=== PATIENT | male | born 1930 | race African-American/Black ===

== ENCOUNTER 2016-09-03 12:41 | Inpatient (IN) | payer MEDICARE ==
--- NOTE | ~2016-09-03 | HP ---
History And Physical [facility] [address] [facility] [place]. [address] NAME: ANGELY COONEY : 30 STATUS : ADM IN PAT#: [id number] AGE: 86 ADM/REG DATE : 09/03/16 MR#: [id number] REPORT SERV DATE: 09/03/16 DICTATED BY: DEBBI HOSKINS DATE: 09/03/16 REPORT STATUS : Draft TRANSCRIBED BY: MODL DATE: 09/03/16 DATE OF ADMISSION: 09/03/2016 CHIEF COMPLAINT: Progressive weakness, not eating and drinking, hurting all over, and intermittent confusion for about two weeks. HISTORY OF PRESENT ILLNESS: He is a very pleasant 86-year-old gentleman. He has a past medical history significant for hypertension. He has a history of recent diagnosed right leg DVT by Dr. Parker, his primary care provider, prior history of DVT for which he has an IVC filter, and according to the daughter who is giving much of the history, no other prior medical history, presenting today to [facility] with complaints of progressive weakness, hurting all over, as well as not eating and drinking for about two weeks that got progressively worse over the last couple of days and that prompted the patient's daughter to bring the patient to hospital. The patient is not complaining of any nausea or vomiting. No chest pain, but he does complain of some shortness of breath. No abdominal pain. No hematemesis or melena. No hematochezia. Dr. Parker, his primary care provider, performed a CT scan of the chest, abdomen, and pelvis on 06/19/2016 because of the recurrent DVTs. It shows some possible pneumonitis and interstitial lung disease. CT of the abdomen and pelvis with essentially normal just diverticulosis, but no diverticulitis. He has been started on Eliquis, but for these two weeks his medical condition got progressively worse to the point that he has been brought to hospital here. Has been found severely dehydrated and hypernatremic, and as a result, Hospitalist Service has been asked for admission, further evaluation, and treatment. PAST MEDICAL HISTORY: Significant for hypertension and recurrent DVT. PAST SURGICAL HISTORY: History of IVC filter. PAST SOCIAL HISTORY: He is a smoker with cigars entire life. He is a heavy alcoholic. According to the daughter, he drinks high amount of [place] since he was 8 years old, but no IV drugs. ALLERGIES: HE DOES NOT HAVE ANY DRUG ALLERGIES. FAMILY HISTORY: Significant for hypertension. MEDICATIONS: At home include Eliquis, hydrochlorothiazide, lisinopril, and verapamil. REVIEW OF SYSTEMS: A 14-point review of systems has been obtained and pertinent positive has been listed into the history of present illness. Otherwise, negative except those underlying above. OBJECTIVE: VITAL SIGNS: The patient currently is afebrile. Blood pressure 90/51, heart rate 98, respiratory rate 21, and saturating about 98% on room air. GENERAL: He is a very dry appearing cachectic gentleman, very hard of talking and hearing. He does not appear in any acute distress. He is alert and oriented x2. He does follow History And Physical [address] [address] NAME: ANGELY COONEY : 30 STATUS : ADM IN [facility]#: [id number] AGE: 86 ADM/REG DATE : 09/03/16 MR#: [id number] REPORT SERV DATE: 09/03/16 DICTATED BY: DEBBI HOSKINS DATE: 09/03/16 REPORT STATUS : Draft TRANSCRIBED BY: JCARLOS DATE: 09/03/16 commands appropriately, but extremely weak. HEENT: Show pupils are equal, round, and reactive to light. Extraocular movements intact. Very poor dentition and very dry mucous membranes. NECK: No JVD. No lymphadenopathy. No thyromegaly appreciated. CHEST: Eval shows bilateral air entry. Few bibasilar crackles. No wheezes or rhonchi appreciated. CARDIOVASCULAR: Regular rate and rhythm. S1, S2 positive. No S3, no S4. No murmurs, rubs, or gallops appreciated. ABDOMEN: Soft, nontender. No guarding. No rebound. EXTREMITIES: No clubbing, cyanosis, or edema. NEUROLOGIC: He is alert and oriented x2. He is very hard of hearing. He is confused at times, but he does follow commands. LABORATORY DATA: Labs from today include AB.33, 24, and 61 on 21% FiO2. Sodium is 153, potassium 5.9, chloride 122, CO2 of 16, BUN 194, creatinine 4.79. On 06/05/2016, creatinine was 1.6, glucose is 115. His liver function tests are normal. Total bilirubin 0.2, alkaline phosphatase 66, ALT 8, AST 17. Lipase 437 and TSH of 0.29. White count is 8.2, hemoglobin 10.2, hematocrit 31.8, and platelets are 259. His UA performed here in the emergency room, has been essentially negative, and there is a chest x-ray, portable, performed in the emergency room. It does show some interstitial infiltrate, chronic changes but possible some aspiration, can be considered with some interstitial lung disease, possible interstitial pneumonitis. EKG performed in the emergency room has shown sinus rhythm with left bundle-branch block. ASSESSMENT AND PLAN: 1. This is a very pleasant 86-year-old gentleman with acute kidney injury likely secondary to significant dehydration with decreased p.o. intake. 2. Hypernatremia secondary to above. 3. Hyperkalemia. 4. Failure to thrive. 5. History of hypertension. 6. Recurrent deep venous thrombosis with recent right lower extremity deep venous thrombosis. 7. Possible aspiration pneumonitis. 8. Likely chronic obstructive pulmonary disease. 9. EtOH abuse. PLAN: 1. The patient is going to be admitted to [facility]. We are going to place him on D5 water with bicarb. We are going to place a Bautista catheter, check all his studies including spot urine for sodium, creatinine, and osmolality. We are going to hold the hydrochlorothiazide, lisinopril, and verapamil currently, get a CAT scan of the chest, abdomen, and pelvis, and consult Nephrology for further recommendation. 2. Hypernatremia. We are going to hydrate him and recheck his labs today and in the morning. 3. Hyperkalemia likely secondary to acute on chronic kidney disease. Provide Kayexalate History And Physical [address] [address] NAME: ANGELY COONEY : 30 STATUS : ADM IN PAT#: [id number] AGE: 86 ADM/REG DATE : 09/03/16 MR#: [id number] REPORT SERV DATE: 09/03/16 DICTATED BY: DEBBI HOSKINS DATE: 09/03/16 REPORT STATUS : Draft TRANSCRIBED BY: MODL DATE: 09/03/16 as well as calcium gluconate. 4. Failure to thrive, unclear etiology. We will start with a chest CT as well as a CT of the abdomen and pelvis. We are going to check anemia studies. Check a ferritin level as well as vitamin B12, folate, TSH, and a free T4. 5. Recent DVT. We will continue his Eliquis. 6. ETOH abuse. Thiamine, multivitamins, as well as Ativan p.r.n. We will also check a.m. labs. Possible aspiration pneumonitis with interstitial lung disease. We are going to place him on empiric antibiotics and get a CAT scan of the chest for better delineation of the lung structures. Check on procalcitonin level. Check blood cultures, and sputum Gram stain and cultures if the patient experienced any cough. We are going to provide reasonable pain and nausea control as well as GI and DVT prophylaxis. I have discussed extensively with the patient's daughter, Ms. Donna Tellez, who is the power of united states attorney, the patient's medical condition and as well as our therapeutical goals. We have also discussed the patient's wishes in case his condition deteriorates, and she does not want any aggressive measures such as intubation, chest compression, mechanical ventilation. No defibrillation, cardioversion, or medications to treat life- threatening arrhythmia or hemodynamic deterioration according to the patient's prior wishes all stated. We will honor the patient's wishes and make him do not resuscitate. Further workup and recommendation pending above. It is worthwhile to note that the patient is going to be followed by Hospitalist Service. CF/MODL Debbi Hoskins M.D. / [id number] CC: Josafat Cage M.D.
--- NOTE | ~2016-09-03 | CN ---
Consultation Report [facility] [address] [place]. [address] NAME: ANGELY COONEY : 30 STATUS : ADM IN PAT#: [id number] AGE: 86 ADM/REG DATE : 09/03/16 MR#: [id number] REPORT SERV DATE: 09/04/16 DICTATED BY: BILL NEELY DATE: 09/04/16 REPORT STATUS : Draft TRANSCRIBED BY: MODL DATE: 09/04/16 NEPHROLOGY CONSULTATION DATE OF CONSULTATION: 09/04/2016 REASON FOR CONSULTATION: Acute renal failure. HISTORY OF PRESENT ILLNESS: This is a very unfortunate 86-year-old gentleman, who came to the emergency department with weakness and failure to thrive, and poor p.o. intake of food and drink for least two weeks. He apparently had been noted by family to have intermittent confusion. The gentleman is seen in the IMCU at this time and he denies any focal complaints at this time. He is not known to have chronic kidney disease with certainty, but review of old lab work in the [facility] system demonstrated modestly elevated baseline serum creatinine of 1.6 mg/dL as measured in 06/2016 on a single sample. He indicates poor appetite, but denies abdominal pain, nausea, vomiting, or diarrhea. He had complained to his family of pain all over his body. His PCP Dr. Parker, apparently checked CT scan of the chest, abdomen, and pelvis back in 2016, because he has had history of recurrent DVT. At that time, he is noted to have pneumonitis, interstitial lung disease. He has had a new CT during this admission, which demonstrates new lytic lesion in left acetabulum. He also has new left basilar pulmonary nodules. Serum creatinine is elevated up to 4.3 mg/dL. At the time of admission, he had modest potassium elevation up to 5.6 mEq/L. He was also modestly acidotic with total CO2 of 16 millimole per liter. He was appropriately given bicarbonate based maintenance IV fluid overnight and has laboratory improvements as described below. We are consulted to assist regarding acute renal failure. PAST MEDICAL HISTORY: 1. Hypertension. 2. Recurrent DVT. 3. Possible chronic lung disease. ALLERGIES: NO KNOWN DRUG ALLERGIES. HOME MEDICATIONS: 1. Eliquis 5 mg oral twice daily. 2. Hydrochlorothiazide 25 mg oral every morning. 3. Lisinopril 20 mg oral daily. 4. Verapamil ER 240 mg once every morning. SURGICAL HISTORY: He has had IVC filter placed previously. SOCIAL HISTORY: He has smoked cigars most of his life. There is substantial history of heavy alcohol abuse according to family members. He has been drinking whiskey since he was Consultation Report [place] [address] [place]. [address] NAME: ANGELY COONEY : 30 STATUS : ADM IN PAT#: [id number] AGE: 86 ADM/REG DATE : 09/03/16 MR#: [id number] REPORT SERV DATE: 09/04/16 DICTATED BY: BILL NEELY DATE: 09/04/16 REPORT STATUS : Draft TRANSCRIBED BY: JCARLOS DATE: 09/04/16 [age] years old. No history of IV drug abuse. FAMILY HISTORY: Apparently, significant for hypertension. There is no mention of chronic kidney diseases. REVIEW OF SYSTEMS: GENERAL: Denies recent night sweats or chills or fevers. GI: Loss of appetite as documented. He denies abdominal pain or diarrhea. CARDIOVASCULAR: Denies chest pain. RESPIRATORY: Indicates no coughing. All other review of systems was negative, noncontributory, or as outlined in the history of present illness. PHYSICAL EXAMINATION: VITAL SIGNS: Temperature 97.4, heart rate 118 beats per minute, respiratory rate 30 breaths per minute, blood pressure 105/54. GENERAL: He is severely cachectic and elderly, but in no distress at this time. HEENT: Positive bitemporal wasting. Sinuses nontender. No evidence of trauma. External ears and nose benign. Oropharynx, mucous membranes pale and dry. Several missing teeth. Eye exam was conjunctivae with encrusted mucopurulent secretion, sunken globes noted. Pupils equal, round, and reactive to light. NECK: Supple. Poor musculature, but easily movable without meningismus, no palpable masses or nodules. Trachea midline. No palpable thyroid nodule. LYMPHATIC: Anterior-posterior neck supraclavicular and abdominal regions were free of lymphadenopathy. RESPIRATORY: Effort is presently nonlabored. Breath sounds distant with faint crackles bilaterally. CARDIOVASCULAR: Dynamic precordium auscultation reveals S1 and S2 with regular rhythm. No gallop or rub. No peripheral edema. No jugular venous distention. ABDOMEN: Sunken. Liver and spleen both palpable, but nontender, and no palpable masses. No guarding to palpation. Auscultation reveals positive bowel sounds. EXTREMITIES: Significant muscular wasting. SKIN: No rashes or discoloration. Skin turgor is poor. Hands and feet were dry, but not cyanotic. STUDIES: Chest x-rays reveals columnar thorax with what appeared to be chronic fibrotic changes bilaterally. Lungs are hyperinflated. Uncertain whether he has effusions. CT of the thorax, abdomen, and pelvis significant for many things, but chief among them lytic lesion noted in the left acetabulum. Very large prostate is noted. He has an IVC filter. There are posterior basilar left lower lobe lung nodules, some of which had cavitary features. Urinalysis, specific gravity of 1.017, pH 5, negative protein, negative glucose, negative hemoglobin, negative leukocyte esterase. Microscopy was bland except for 103 hyaline casts. Chemistry sodium 154, potassium 4.2, chloride 120, CO2 of 21, BUN of Consultation Report [address] [address] NAME: ANGELY COONEY FRANC : 30 STATUS : ADM IN [facility]#: [id number] AGE: 86 ADM/REG DATE : 09/03/16 MR#: [id number] REPORT SERV DATE: 09/04/16 DICTATED BY: BILL NEELY DATE: 09/04/16 REPORT STATUS : Draft TRANSCRIBED BY: JCARLOS DATE: 09/04/16 170, creatinine 4.3, glucose 140, albumin 2, corrected calcium 9.8. Procalcitonin level was within normal limits. Phosphorus yesterday measured 6.4. CBC today, white cell count 7, hemoglobin 9 g/dL, hematocrit 27.2%, platelets 221. IMPRESSIONS: 1. Acute kidney injury which I am suspecting currently is hemodynamic in nature relative to substantial dehydration. The urine reveals concentration with substantial amount of hyaline casts. He could possibly have had some obstructive insult given the size of his prostate, but I am unaware of any substantial gross postvoid residual. 2. 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 3. Hyperkalemia is basically resolved. 4. Metabolic acidosis, much improved after administration of bicarbonate based fluids as well as bicarbonate boluses. 5. Hypernatremia, which indicates relative dehydration. 6. He appears quite dry on physical exam. 7. Cachectic, unknown duration of weight loss. The patient indicates that he once weighed 140 pounds. He is certainly far less than that at this time. 8. Lytic lesion on CT scan. 9. Cavitary pulmonary lesions. 10.Anemia, moderate severity, etiology unclear at this time. 11.Severe hypoalbuminemia despite what I would expect to be relatively concentrated serum indices. Nutritional status is absolutely terrible. 12.Other past medical history and chronic problems as outlined above. Malignancy is strongly suspected in this gentleman. He is elderly and quite frail and in my opinion is not really a candidate for hemodialysis. Conservative measures are warranted. PLAN/RECOMMENDATIONS: 1. I am going to change his IV fluids to D5 lactated Ringer's and run that at 120 mL/h. 2. Bautista with strict intake and output measurements. 3. Agree with laboratory studies, already ordered including serum immunofixation and prostatic antigen. 4. Daily chemistries. 5. Thiamine 100 mg IV q. 24 hours. 6. If not yet ordered, I will add serum B12, folic acid level, and also iron stores for workup of anemia. Thank you for consulting us in the care of this complicated patient. He will be followed on rounds. RONAN/JCARLOS Consultation Report [address] [place]. [address] NAME: COONEYANGELY HICKMAN FRANC : 30 STATUS : ADM IN [facility]#: [id number] AGE: 86 ADM/REG DATE : 09/03/16 MR#: [id number] REPORT SERV DATE: 09/04/16 DICTATED BY: BILL NEELY DATE: 09/04/16 REPORT STATUS : Draft TRANSCRIBED BY: JCARLOS DATE: 09/04/16 Bill Neely M.D. / [id number] CC: Josafat Cage M.D.
--- NOTE | ~2016-09-03 | HP ---
History And Physical [facility] [address] [place] [place]. [address] NAME: ANGELY COONEY : 30 STATUS : DIS IN PAT#: [id number] AGE: 86 ADM/REG DATE : 09/03/16 MR#: [id number] REPORT SERV DATE: 09/08/16 DICTATED BY: MICHAEL VELAZCO DATE: 09/08/16 REPORT STATUS : Draft TRANSCRIBED BY: MODL DATE: 09/08/16 DATE OF ADMISSION: 09/03/2016 Date of original admission was 09/03/2016. Date of transfer to [facility] was 09/08/2016. The patient is an 86-year-old -[place] male, brought to [facility] on 09/03/2016, for increasing weakness, shortness of breath, and decreased p.o. intake for the last several weeks. He was found to be cachectic with an albumin of 1.8. He had aspiration pneumonia, dehydration, hypernatremia, acute kidney injury with a creatinine that went up to over 4 and a GFR that went down to 13 before rebounding to 29. He was also found to have widely metastatic bony lytic lesions and multiple pulmonary nodules and a thyroid mass. Family declined any additional workup. PAST MEDICAL HISTORY: Pertinent for interstitial lung disease and COPD. Alcohol abuse. Recurrent DVTs. Hypertension. Prostatic hypertrophy. His only surgery that is noted is an IVC filter (it is worth noting family is not present and this history was obtained from the chart.) SOCIAL HISTORY: He has been a long-time cigar smoker and abuser of alcohol. No IV drug use. FAMILY HISTORY: Pertinent for hypertension. ALLERGIES: HE HAS NO ALLERGIES. REVIEW OF SYSTEMS: Cannot really be done because the patient is just mumbling and picking at his clothes. PHYSICAL EXAMINATION: GENERAL: This is a cachectic confused -Haitian male. VITAL SIGNS: His blood pressure 106/62, respirations were 40, pulse 120. NEUROLOGIC: He has been given a little bit of morphine, having come into our service and is a little calmer and breathing a little better now. He had muscle wasting. Pupils are equal. Extraocular motions appeared intact. NECK: No carotid bruits heard. I could not feel the aforementioned thyroid mass. LUNGS: He has essentially no breath sounds on the left. The lungs on the right are fairly clear. HEART: His heart is rapid, occasionally irregular. No murmurs or gallops heard. ABDOMEN: Scaphoid. Soft with positive bowel sounds. EXTREMITIES: He had no edema in his legs. He did not really respond to commands but was moving both arms. ASSESSMENT AND PLAN: This is an 86-year-old -[place]ian male with end-stage COPD and respiratory failure, just weaned off Vapotherm 20 L at 40%. The goal now is to comfort care History And Physical [address] [address] NAME: ANGELY COONEY : 30 STATUS : DIS IN PAT#: [id number] AGE: 86 ADM/REG DATE : 09/03/16 MR#: [id number] REPORT SERV DATE: 09/08/16 DICTATED BY: MICHAEL VELAZCO DATE: 09/08/16 REPORT STATUS : Draft TRANSCRIBED BY: MODL DATE: 09/08/16 and he is DNR. He also has presumed metastatic cancer of unknown primary and we are admitting him GIP for his dyspnea and confusion. GP/MODL Michael Velazco MD / [id number] CC: MD Peterson Avila M.D.
--- NOTE | ~2016-09-03 | DS ---
Discharge Summary [facility] [address] [place]. [address] NAME: ANGELY COONEY : 30 STATUS : DIS IN PAT#: [id number] AGE: 86 ADM/REG DATE : 09/03/16 MR#: [id number] REPORT SERV DATE: 09/10/16 DICTATED BY: ISAIAH RODRIGUES DATE: 09/09/16 REPORT STATUS : Draft TRANSCRIBED BY: MODL DATE: 09/09/16 ADMISSION DATE: 09/03/2016 DISCHARGE DATE: 09/09/2016 DISCHARGE DIAGNOSES: 1. End-stage chronic obstructive pulmonary disease, with hypoxic respiratory failure. 2. DNR comfort care. 3. Presumed metastatic cancer of unknown primary. 4. Acute kidney injury. 5. Metastatic bony lytic lesions and multiple pulmonary nodules. HOSPITAL COURSE: This is an 86-year-old gentleman who was admitted to the hospital with initial diagnosis of acute kidney injury from dehydration as well as hyperkalemia and failure to thrive. For details please refer to the excellent H and P by Dr. Debbi Olmedo. In summary, the patient was admitted and was given maximal medical care in the [facility]. Despite maximal efforts, patient continued to deteriorate and although we corrected his dehydration, patient continued to show overall clinical deterioration. The patient's end-stage COPD only got worse throughout the hospital stay, and he required to be on BiPAP which was later titrated down to Vapotherm, but he was not able to come off the Vapotherm. In the light of metastatic cancer with unknown primary and his advanced age, as well as multiple medical problems, it was decided that the patient will benefit most from hospice care which patient agreed to. The patient was transferred out to the [facility] and hospice consultation was requested. The patient was accepted to inpatient hospice on site and his care was transferred to hospice. Total of 40-minutes spent in coordinating this patient's discharge today. DICTATED BY: MD JUAN Avila/JCARLOS Isaiah Rodrigues MD / [id number] CC: MD Peterson Avila M.D.
[~2016-09-03 12:41] MED LIST: ADVAIR250 INH; AMB5 PO; ARICEPT10 PO; ARTHRITIS PAIN RELIE PO; ASAB PO; CENTRUM TAB1 TAB PO; CLARIT10 PO; COREG25 PO; CYMBALTA60 PO; DIOVAN320 MG PO; HYDRALAZINE100 MG PO; MERCAPTOPUR50 MG OR; NASONEX NAS; NORV10 PO; PRILO PO; STERAPRED DS10 MG PO; TESTOST CYP100 MG/ML IM; VENTOLIN HFA INH; VITAMIN D31000 UNIT PO; ZOCOR10 PO
[2016-09-03 12:48] LABS: BASOPHILS 0.1 %; BASOPHILS ABSOLUTE 0.01 10/3/uL (0.0-0.16); EOSINOPHILS 0.1 %; EOSINOPHILS ABSOLUTE 0.01 10/3/uL (0.0-0.53); ER CBC TAT 0 Hrs 05 Mins; HEMATOCRIT 31.8 % (40.0-51.0); HEMOGLOBIN 10.2 g/dL (13.6-17.8); IMMATURE GRANULOCYTES 0.2 %; LYMPHOCYTES 8.3 %; LYMPHOCYTES ABSOLUTE 0.68 10/3/uL (0.67-4.30); MEAN CORPUS HGB CONC 32.1 g/dL (32.0-36.0); MEAN CORPUSCULAR HEMOGLOB 28.9 pg (26.0-34.0); MEAN PLATELET VOLUME 10.5 fL (9.2-13.0); MONOCYTES 4.9 %; NEUTROPHILS 86.4 %; NEUTROPHILS ABSOLUTE 7.11 10/3/uL (2.02-8.40); RBC DISTRIBUTION WIDTH 15.3 % (12.0-16.0); RED CELL COUNT 3.53 10/6/uL (4.7-6.1); WHITE BLOOD CELLS 8.2 10/3/uL (4.5-10.5)
[2016-09-03 12:51] LABS: MANUAL DIFF NO %; MEAN CORPUSCULAR VOLUME 90.1 fL (80-100); PLATELET COUNT 259 10/3/uL (150-400)
[2016-09-03 12:52] LABS: IMMATURE GRANULOCYTES ABSOLUTE 0.02 10/3/uL (0.0-0.11)
[2016-09-03 12:53] LABS: ASCORBIC ACID (UR NOT ORDER) NEG (NEG); BILIRUBIN, URINE NEGATIVE (NEG); ER URINALYSIS TAT 0 Hrs 08 Mins; KETONE, URINE NEGATIVE (NEG); LEUKOCYTE ESTERASE(NOT OR NEG (NEG); NITRITE (URINE) NEG (NEG); WBC (NOT ORDERED) (RFLEX) 1 (0-5)
[2016-09-03 13:03] LABS: ALKALINE PHOSPHATASE 66 U/L (45-117); CALCIUM, SERUM 8.3 MG/DL (8.5-10.4); CHLORIDE, SERUM 122 MMOL/L (96-112); GLUCOSE, SERUM 115 MG/DL (60-99); SGOT(AST) 17 U/L (5-40); SGPT(ALT) 8 U/L (5-65); TOTAL BILIRUBIN 0.2 MG/DL (0-1.2)
[2016-09-03 13:05] LABS: A/G RATIO 0.5 (0.7-1.9); ALBUMIN 1.9 G/DL (3.5-5.0); CO2 (CARBON DIOXIDE) 16 MMOL/L (24-34); CREATININE 4.79 MG/DL (0.70-1.30); GFR AFRICAN AMERICAN 12 ML/MIN (>=60); GFR NON AFRICAN AMERICAN 10 ML/MIN (>=60); GLOBULIN 3.6 G/DL (2.5-4.1); POTASSIUM, SERUM 5.9 MMOL/L (3.5-5.3); SODIUM, SERUM 153 MMOL/L (135-148); TOTAL PROTEIN 5.5 G/DL (6.0-8.5)
[2016-09-03 13:08] LABS: BAND NEUTROPHILS 5 %; BURR CELLS 1+ (3-10/OIF) (0-2/OIF); ER DIFF TAT 0 Hrs 25 Mins; LYMPHOCYTES 6 %; LYMPHOCYTES ABSOLUTE (CALC) 0.49 10/3/uL (0.67-4.30); MONOCYTES 1 %; MONOCYTES ABSOLUTE (CALC) 0.08 10/3/uL (0.21-1.20); NEUTROPHILS ABSOLUTE (CALC) 7.63 10/3/uL (2.02-8.40); PLATELET ESTIMATE ADQ (ADEQUATE); POIKILOCYTOSIS 1+ (5-10/OIF) (0-5/OIF); SEGMENTED NEUTROPHIL (0) 88 %; TOTAL NUCLEATED CELLS 100
[2016-09-03 13:09] LABS: OVALOCYTES 1+ (3-10/OIF) (0-2/OIF); SCHISTOCYTES OCC (0-2/OIF)
[2016-09-03 13:10] LABS: POLYCHROMASIA 1+ (2-5/OIF) (0-1/OIF)
[2016-09-03 13:14] LABS: BUN (BLOOD UREA NITROGEN) 194 MG/DL (6-23)
[2016-09-03] MEDS ORDERED: HCTZ25B PO (13:54)
[2016-09-03] MEDS ORDERED: ELIQUIS 5 MG TAB5 MG PO (13:54)
[2016-09-03] MEDS ORDERED: PRIN20 PO (13:55)
[2016-09-03] MEDS ORDERED: ISOPTIN SR240 MG PO (13:57)
[2016-09-03 14:12] LABS: BE (BASE EXCESS) -11.5 MEQ/L (0 +/- 2.5); HCO3 (ACTUAL BICARBONATE) 12.4 MEQ/L (23-27); INSTRUMENT SERIAL # 8087; PCO2 (CO2 TENSION) 24 MMHG (35-45); PO2 (O2 TENSION) 61 MMHG (79-93); SAMPLE Arterial; pH 7.33 (7.37-7.43)
[2016-09-03 19:30] LABS: FERRITIN 120 NG/ML (26-388); IRON BINDING CAPACITY 122 MCG/DL (250-450); IRON, SERUM 19 MCG/DL (35-150); PHOSPHORUS, SERUM 6.4 MG/DL (2.5-4.5)
[2016-09-03 19:31] LABS: ACETAMINOPHEN LEVEL (TYLENOL) < 2.0 MCG/ML (10.0-20.0); ALCOHOL < 10 MG/DL (0); SALICYLATE < 1.7 MG/DL (-)
[2016-09-03 20:30] LABS: INTERNATIONAL NORMAL RATI 1.3 UNITS (-); PARTIAL THROMBO TIME 35.5 SEC (22.5-37.2); PROTIME (NOT ORD) 15.6 SEC (12.0-14.5)
[2016-09-03 20:36] LABS: CALCIUM, SERUM 8.7 MG/DL (8.5-10.4); CHLORIDE, SERUM 122 MMOL/L (96-112); CO2 (CARBON DIOXIDE) 18 MMOL/L (24-34); CREATININE 4.52 MG/DL (0.70-1.30); GFR AFRICAN AMERICAN 13 ML/MIN (>=60); GFR NON AFRICAN AMERICAN 11 ML/MIN (>=60); SODIUM, SERUM 152 MMOL/L (135-148)
[2016-09-03 20:39] LABS: BUN (BLOOD UREA NITROGEN) 180 MG/DL (6-23); GLUCOSE, SERUM 195 MG/DL (60-99)
[2016-09-03 20:43] LABS: B NATRIURETIC PEPTIDE (BNP) 20.1 PG/ML (< 100.0)
[2016-09-03 21:27] LABS: GLYCOHEMOGLOBIN (HbA1c) 5.7 % (4.7-6.1)
[2016-09-03 22:50] LABS: CPK 91 U/L (0-200); TROPONIN I 0.03 NG/ML (<0.05)
[2016-09-03 22:51] LABS: CK-MB 2.9 NG/ML
[2016-09-04 04:24] LABS: BASOPHILS 0 %; EOSINOPHILS 0.1 %; EOSINOPHILS ABSOLUTE 0.01 10/3/uL (0.0-0.53); IMMATURE GRANULOCYTES 0.3 %; IMMATURE GRANULOCYTES ABSOLUTE 0.02 10/3/uL (0.0-0.11); LYMPHOCYTES 5.7 %; MEAN CORPUS HGB CONC 33.1 g/dL (32.0-36.0); MEAN CORPUSCULAR VOLUME 87.7 fL (80-100); MEAN PLATELET VOLUME 10.3 fL (9.2-13.0); MONOCYTES 5.9 %; MONOCYTES ABSOLUTE 0.41 10/3/uL (0.21-1.20); NEUTROPHILS ABSOLUTE 6.13 10/3/uL (2.02-8.40); PLATELET COUNT 221 10/3/uL (150-400); RBC DISTRIBUTION WIDTH 15.1 % (12.0-16.0)
[2016-09-04 04:25] LABS: HEMATOCRIT 27.2 % (40.0-51.0); MANUAL DIFF NO %
[2016-09-04 04:37] LABS: T PROTEIN (ELECT)(NOT OR 5.1 G/DL (6.0-8.5)
[2016-09-04 04:43] LABS: A/G RATIO 0.6 (0.7-1.9); ALKALINE PHOSPHATASE 54 U/L (45-117); CALCIUM, SERUM 8.2 MG/DL (8.5-10.4); CHLORIDE, SERUM 120 MMOL/L (96-112); CO2 (CARBON DIOXIDE) 21 MMOL/L (24-34); GFR AFRICAN AMERICAN 13 ML/MIN (>=60); GFR NON AFRICAN AMERICAN 12 ML/MIN (>=60); GLOBULIN 3.5 G/DL (2.5-4.1); GLUCOSE, SERUM 140 MG/DL (60-99); POTASSIUM, SERUM 4.2 MMOL/L (3.5-5.3); SGOT(AST) 20 U/L (5-40); SGPT(ALT) 11 U/L (5-65); SODIUM, SERUM 154 MMOL/L (135-148); TOTAL BILIRUBIN 0.3 MG/DL (0-1.2); TOTAL PROTEIN 5.5 G/DL (6.0-8.5)
[2016-09-04 04:59] LABS: BUN (BLOOD UREA NITROGEN) 170 MG/DL (6-23)
[2016-09-04 05:26] LABS: PROCALCITONIN 0.43 ng/mL (<0.5)
[2016-09-04 10:32] LABS: PROSTATIC SPECIFIC AG 6.42 NG/ML (0.0-6.5)
[2016-09-04 11:19] LABS: A/G 0.95 RATIO (0.9-2.10); ALB RELATIVE % 48.6 % (60.0-89.0); ALBUMIN (ELECTRO) 2.48 GM/DL (3.2-5.5); ALPHA 1 (ELECTRO) 0.31 GM/DL (0.1-0.4); ALPHA 2 (ELECTRO) 0.76 GM/DL (0.5-1.10); ALPHA 2 RELAT % 14.9 % (4.5-26.0); BETA GLOBULIN (SPE) 0.61 GM/DL (0.60-1.30); GAMMA GLOBULIN (SPE) 0.94 G/DL (0.70-1.60); GAMMA RELAT % 18.5 % (6.0-22.0)
[2016-09-04 14:51] LABS: FERRITIN 112 NG/ML (26-388); FOLATE 9.3 NG/ML (>5.2); IRON, SERUM 22 MCG/DL (35-150)
[2016-09-05 05:49] LABS: ALLENS TEST Pos; BE (BASE EXCESS) 0.1 MEQ/L (0 +/- 2.5); CARBOXYHEMOGLOBIN 0.2 % (0-3); DEVICE NRB; HCO3 (ACTUAL BICARBONATE) 23.2 MEQ/L (23-27); HEMOBLOGIN CONTENT 10.1 G/DL (14-18); INSTRUMENT SERIAL # 8083; METHEMOGLOBIN 0.2 % (0-3); O2 CONTENT 12.4 VOL% (18-24); OPERATOR ID 30013; PCO2 (CO2 TENSION) 32 MMHG (35-45); PO2 (O2 TENSION) 59 MMHG (79-93); SAMPLE Arterial; pH 7.48 (7.37-7.43)
[2016-09-05 06:35] LABS: BASOPHILS 0.1 %; BASOPHILS ABSOLUTE 0.01 10/3/uL (0.0-0.16); EOSINOPHILS 0.2 %; EOSINOPHILS ABSOLUTE 0.02 10/3/uL (0.0-0.53); HEMOGLOBIN 9.5 g/dL (13.6-17.8); IMMATURE GRANULOCYTES 0.4 %; IMMATURE GRANULOCYTES ABSOLUTE 0.04 10/3/uL (0.0-0.11); LYMPHOCYTES 6.6 %; MEAN CORPUS HGB CONC 31.7 g/dL (32.0-36.0); MEAN CORPUSCULAR HEMOGLOB 28.4 pg (26.0-34.0); MEAN CORPUSCULAR VOLUME 89.8 fL (80-100); MONOCYTES 6.3 %; MONOCYTES ABSOLUTE 0.57 10/3/uL (0.21-1.20); NEUTROPHILS 86.4 %; NEUTROPHILS ABSOLUTE 7.88 10/3/uL (2.02-8.40); PLATELET COUNT 212 10/3/uL (150-400); RBC DISTRIBUTION WIDTH 15.5 % (12.0-16.0); RED CELL COUNT 3.34 10/6/uL (4.7-6.1); WHITE BLOOD CELLS 9.1 10/3/uL (4.5-10.5)
[2016-09-05 06:41] LABS: MANUAL DIFF NO %
[2016-09-05 06:48] LABS: ALBUMIN 1.6 G/DL (3.5-5.0); CALCIUM, SERUM 7.7 MG/DL (8.5-10.4); CHLORIDE, SERUM 122 MMOL/L (96-112)
[2016-09-05 06:50] LABS: BUN (BLOOD UREA NITROGEN) 110 MG/DL (6-23); CO2 (CARBON DIOXIDE) 27 MMOL/L (24-34); CREATININE 2.89 MG/DL (0.70-1.30); GFR AFRICAN AMERICAN 22 ML/MIN (>=60); GFR NON AFRICAN AMERICAN 19 ML/MIN (>=60); GLUCOSE, SERUM 109 MG/DL (60-99); PHOSPHORUS, SERUM 3.5 MG/DL (2.5-4.5); SODIUM, SERUM 157 MMOL/L (135-148)
[2016-09-05 08:00] LABS: PROCALCITONIN 0.26 ng/mL (<0.5)
[2016-09-07 06:03] LABS: BASOPHILS 0.1 %; BASOPHILS ABSOLUTE 0.01 10/3/uL (0.0-0.16); EOSINOPHILS 0.2 %; EOSINOPHILS ABSOLUTE 0.02 10/3/uL (0.0-0.53); IMMATURE GRANULOCYTES 0.2 %; IMMATURE GRANULOCYTES ABSOLUTE 0.03 10/3/uL (0.0-0.11); LYMPHOCYTES 7.3 %; LYMPHOCYTES ABSOLUTE 0.92 10/3/uL (0.67-4.30); MEAN CORPUS HGB CONC 31.7 g/dL (32.0-36.0); MEAN CORPUSCULAR VOLUME 91.3 fL (80-100); MEAN PLATELET VOLUME 11.8 fL (9.2-13.0); MONOCYTES 7.9 %; MONOCYTES ABSOLUTE 0.99 10/3/uL (0.21-1.20); NEUTROPHILS 84.3 %; NEUTROPHILS ABSOLUTE 10.61 10/3/uL (2.02-8.40); RBC DISTRIBUTION WIDTH 15.3 % (12.0-16.0); WHITE BLOOD CELLS 12.6 10/3/uL (4.5-10.5)
[2016-09-07 06:11] LABS: HEMATOCRIT 41.9 % (40.0-51.0); HEMOGLOBIN 13.3 g/dL (13.6-17.8); MANUAL DIFF NO %; PLATELET COUNT 148 10/3/uL (150-400); RED CELL COUNT 4.59 10/6/uL (4.7-6.1)
[2016-09-07 07:58] LABS: BUN (BLOOD UREA NITROGEN) 84 MG/DL (6-23); CHLORIDE, SERUM 121 MMOL/L (96-112); CO2 (CARBON DIOXIDE) 23 MMOL/L (24-34); CREATININE 2.35 MG/DL (0.70-1.30); GFR AFRICAN AMERICAN 28 ML/MIN (>=60); GFR NON AFRICAN AMERICAN 24 ML/MIN (>=60); GLUCOSE, SERUM 121 MG/DL (60-99); SODIUM, SERUM 153 MMOL/L (135-148)
[2016-09-07 11:37] LABS: ALBUMIN RELAT % 35.2 %
[2016-09-08 06:01] LABS: BASOPHILS 0.1 %; BASOPHILS ABSOLUTE 0.01 10/3/uL (0.0-0.16); EOSINOPHILS 0.3 %; EOSINOPHILS ABSOLUTE 0.03 10/3/uL (0.0-0.53); HEMATOCRIT 32.6 % (40.0-51.0); HEMOGLOBIN 10.2 g/dL (13.6-17.8); IMMATURE GRANULOCYTES 0.3 %; IMMATURE GRANULOCYTES ABSOLUTE 0.04 10/3/uL (0.0-0.11); LYMPHOCYTES 4.4 %; LYMPHOCYTES ABSOLUTE 0.51 10/3/uL (0.67-4.30); MANUAL DIFF NO %; MEAN CORPUS HGB CONC 31.3 g/dL (32.0-36.0); MEAN CORPUSCULAR HEMOGLOB 28.7 pg (26.0-34.0); MEAN CORPUSCULAR VOLUME 91.6 fL (80-100); MEAN PLATELET VOLUME 10.9 fL (9.2-13.0); MONOCYTES 6.3 %; MONOCYTES ABSOLUTE 0.74 10/3/uL (0.21-1.20); NEUTROPHILS 88.6 %; NEUTROPHILS ABSOLUTE 10.35 10/3/uL (2.02-8.40); PLATELET COUNT 184 10/3/uL (150-400); RBC DISTRIBUTION WIDTH 15.2 % (12.0-16.0); RED CELL COUNT 3.56 10/6/uL (4.7-6.1); WHITE BLOOD CELLS 11.7 10/3/uL (4.5-10.5)
[2016-09-08 06:11] LABS: CALCIUM, SERUM 8.2 MG/DL (8.5-10.4); CHLORIDE, SERUM 116 MMOL/L (96-112); CO2 (CARBON DIOXIDE) 23 MMOL/L (24-34); CREATININE 2.26 MG/DL (0.70-1.30); GFR AFRICAN AMERICAN 29 ML/MIN (>=60); GFR NON AFRICAN AMERICAN 25 ML/MIN (>=60)
[2016-09-08 06:12] LABS: BUN (BLOOD UREA NITROGEN) 75 MG/DL (6-23); GLUCOSE, SERUM 167 MG/DL (60-99); POTASSIUM, SERUM 3.9 MMOL/L (3.5-5.3); SODIUM, SERUM 145 MMOL/L (135-148)
== END 2016-09-08 17:43 | disposition hospice, inpatient (51) | DRG 177 ==
LOC: ER 12:41 → IMCU 16:35 → 6NO 09-06 16:48
PROVIDERS: Family Medicine; Hospitalist; Internal Medicine
PROC: 02HV33Z Insertion of Infusion Device into Superior Vena Cava, Percutaneous Approach (ICD-10-PCS; principal; 2016-09-04)
PROC: 4A02X4A Measurement of Cardiac Electrical Activity, Guidance, External Approach (ICD-10-PCS; 2016-09-04)
DX: J69.0 Pneumonitis due to inhalation of food and vomit (principal); J96.01 Acute respiratory failure with hypoxia; R57.9 Shock, unspecified; E43 Unspecified severe protein-calorie malnutrition; C79.51 Secondary malignant neoplasm of bone; N17.9 Acute kidney failure, unspecified; E87.0 Hyperosmolality and hypernatremia; N18.4 Chronic kidney disease, stage 4 (severe); R64 Cachexia; C80.1 Malignant (primary) neoplasm, unspecified; Z68.1 Body mass index [BMI] 19.9 or less, adult; I27.2 Other secondary pulmonary hypertension; E87.5 Hyperkalemia; R62.7 Adult failure to thrive; E86.0 Dehydration; Z51.5 Encounter for palliative care; I12.9 Hypertensive chronic kidney disease with stage 1 through stage 4 chronic kidney disease, or unspecified chronic kidney disease; F17.210 Nicotine dependence, cigarettes, uncomplicated; F10.20 Alcohol dependence, uncomplicated; D63.8 Anemia in other chronic diseases classified elsewhere; Z66 Do not resuscitate; Z86.718 Personal history of other venous thrombosis and embolism; Z95.828 Presence of other vascular implants and grafts; Z82.49 Family history of ischemic heart disease and other diseases of the circulatory system; I07.1 Rheumatic tricuspid insufficiency
CPT/HCPCS: 36569; 36600; 71010; 71250; 74176; 80048; 80053; 80069; 80307; 81001; 82140; 82330; 82550; 82553; 82607; 82728; 82746; 82805; 83036; 83540; 83550; 83605; 83615; 83690; 83735; 83880; 84100; 84145; 84153; 84155; 84156; 84165; 84166; 84443; 84484; 85025; 85610; 85730; 87040; 87641; 93005; 93306; 94640; 96374; 99285; A9270-GY; C1751; C9113; J0610; J1956; J2543; J3411; P9047

== ENCOUNTER 2016-09-08 18:00 | Inpatient (IN) | payer OTHER ==
--- NOTE | ~2016-09-08 | DS ---
Discharge Summary [facility] [address] [place]. [address] NAME: ANGELY COONEY : 30 STATUS : DIS IN PAT#: [id number] AGE: 86 ADM/REG DATE : 09/08/16 MR#: [id number] REPORT SERV DATE: 09/17/16 DICTATED BY: MICHAEL BECKER DATE: 09/17/16 REPORT STATUS : Draft TRANSCRIBED BY: MODL DATE: 09/17/16 ADMISSION DATE: 09/08/2016 DISCHARGE DATE: 09/09/2016 SUMMARY DATE OF ORIGINAL ADMISSION: 09/03/2016. DATE OF TRANSFER TO [facility]: 09/08/2016. HISTORY OF PRESENT ILLNESS: The patient is an 86-year-old male, brought to [facility] on 09/03 for increasing weakness and shortness of breath, found to be cachectic with an albumin of 1.8. He had aspiration pneumonia and dehydration, acute kidney injury. He was also found at that same time to have widely metastatic bone lesions and pulmonary nodules and a thyroid mass. He declined any additional workup. PAST MEDICAL HISTORY: Including interstitial lung disease, COPD, alcohol abuse, recurrent DVTs. We started the patient on subcu morphine, DuoNebs, and Ativan to focus on comfort care. Patient was made DNR and he the following day, 09/09 at 5:16 p.m. Final cause of is cancer of unknown primary widely metastatic along with acute kidney injury and severe cachexia. DICTATED BY: Michael Becker MD GP/JCARLOS Michael Becker MD / [id number] CC: Michael Becker MD
[~2016-09-08 18:00] MED LIST changes: +ELIQUIS 5 MG TAB5 MG PO; +HCTZ25B PO; +ISOPTIN SR240 MG PO; +PRIN20 PO
== END 2016-09-09 18:57 | disposition expired | DRG 189 ==
LOC: 6NO 18:00
DX: J96.01 Acute respiratory failure with hypoxia (principal); J69.0 Pneumonitis due to inhalation of food and vomit; E43 Unspecified severe protein-calorie malnutrition; C79.51 Secondary malignant neoplasm of bone; E87.0 Hyperosmolality and hypernatremia; N17.9 Acute kidney failure, unspecified; N18.4 Chronic kidney disease, stage 4 (severe); R64 Cachexia; Z68.1 Body mass index [BMI] 19.9 or less, adult; Z51.5 Encounter for palliative care; Z66 Do not resuscitate; C80.1 Malignant (primary) neoplasm, unspecified; I27.2 Other secondary pulmonary hypertension; E87.5 Hyperkalemia; R62.7 Adult failure to thrive; E86.0 Dehydration; I12.9 Hypertensive chronic kidney disease with stage 1 through stage 4 chronic kidney disease, or unspecified chronic kidney disease
CPT/HCPCS: 94640; A9270-GY